=== PATIENT | male | born 1965 | race Two or more races ===

== ENCOUNTER 2017-11-25 20:16 | Inpatient (IN) | payer OTHER ==
--- NOTE | 2017-11-25 20:21 | PDOC ---
Rapid Medical Evaluation Time Seen by Provider: 11/25/17 20:19 Medical Evaluation: 11/25/17 20:19 I have performed a brief in-person evaluation of this patient. The patient presents with a chief complaint of: fever s/p I&D today Pertinent physical exam findings: Abscess present to midline upper back. I have ordered the following: nothing The patient will proceed to the ED for further evaluation. Discharge Disposition - Diagnosis Abscess - Referrals - Patient Instructions - Post Discharge Activity
[2017-11-25 20:24] VITALS: BMI 28.3
--- NOTE | 2017-11-25 21:01 | PDOC ---
History of Present Illness - General History Source: Patient, Old Records, Primary Care Provider Exam Limitations: No Limitations - History of Present Illness Initial Comments: 11/25/17 21:18 The patient is a 51 year old male, with no significant past medical history, who presents to the ED complaining of an an infected wound on his upper back and fever. His fever has been as high as 101 F at home and 103 F in the ED. He notes that he has had a lump on his upper back for the past 20 years but notes that over the past 5 days the area has become infected. He notes that he went to Dr. Fernandez office who attempted to drain the wound and then packed it before sending the patient to the ED. The patient reports that he is currently taking Codeine for his pain and Bactrim for his infection. He denies any other complaints. The patient denies chest pain, shortness of breath, headache or dizziness. Denieschills, nausea, vomiting, diarrhea and constipation. Denies dysuria, frequency, urgency and hematuria. Allergies: None Past surgical history: Hernia repair x 2 Social History: No alcohol, tobacco or drug use reported PMD: Dr. Gilmore <Gallo Payton - Last Filed: 11/26/17 01:00> <Yenny Branch - Last Filed: 11/26/17 01:12> - General Chief Complaint: SIRS, Suspected/Possible Stated Complaint: FEVER Time Seen by Provider: 11/25/17 20:19 Past History <Gallo Payton - Last Filed: 11/26/17 01:00> - Past Medical History COPD: No - Surgical History GI Surgery: Yes (hernia repair x 2) - Suicide/Smoking/Psychosocial Hx Smoking History: Former smoker Have you smoked in the past 12 months: No If you are a former smoker, when did you quit?: 2007 Information on smoking cessation initiated: No Hx Alcohol Use: No Drug/Substance Use Hx: No Substance Use Type: None <Yenny Branch - Last Filed: 11/26/17 01:12> - Past Medical History Allergies/Adverse Reactions: Allergies Allergy/AdvReac Type Severity Reaction Status Date / Time No Known Allergies Allergy Verified 11/25/17 21:44 Home Medications: Ambulatory Orders NK [No Known Home Medication] 11/25/17 Review of Systems - Review of Systems Able to Perform ROS?: Yes Comments:: 11/25/17 21:18 GENERAL/CONSTITUTIONAL: (+) Fever. No chills. No weakness. HEAD, EYES, EARS, NOSE AND THROAT: No change in vision. No ear pain or discharge. No sore throat. GASTROINTESTINAL: No nausea, vomiting, diarrhea or constipation. GENITOURINARY: No dysuria, frequency, or change in urination. CARDIOVASCULAR: No chest pain or shortness of breath. RESPIRATORY: No cough, wheezing, or hemoptysis. MUSCULOSKELETAL: No joint or muscle swelling or pain. No neck or back pain. SKIN: (+) Upper back lump with infection and drainage. Currently packed. NEUROLOGIC: No headache, vertigo, loss of consciousness, or change in strength/ sensation. ENDOCRINE: No increased thirst. No abnormal weight change. HEMATOLOGIC/LYMPHATIC: No anemia, easy bleeding, or history of blood clots. ALLERGIC/IMMUNOLOGIC: No hives or skin allergy. <Gallo Payton - Last Filed: 11/26/17 01:00> *Physical Exam - Vital Signs Last Vital Signs Temp Pulse Resp BP Pulse Ox 100.3 F H 108 H 20 127/93 100 11/25/17 20:18 11/25/17 20:18 11/25/17 20:18 11/25/17 20:18 11/25/17 20:18 - Physical Exam Comments: 11/25/17 21:19 Constitutional: Awake, alert, oriented. No acute distress. Head: Normocephalic. Atraumatic Eyes: PERRL. EOMI. Conjunctivae are not pale. ENT: Mucous membranes are moist and intact. Posterior pharynx without exudates or erythema. Uvula midline. Neck: Supple. Full ROM. No lymphadenopathy. Cardiovascular: Regular rate. Regular rhythm. S1, S2 regular. Distal pulses are 2+ and symmetric. Pulmonary/Chest: No evidence of respiratory distress. Clear to auscultation bilaterally No wheezing, rales or rhonchi. Abdominal: Soft and non-distended. There is no tenderness. No rebound, guarding or rigidity. No organomegaly. No palpable masses. Good bowel sounds. Back: No CVA tenderness. Musculoskeletal: No edema. No cyanosis. No clubbing. Full range of motion in all extremities. Nocalf tenderness. Radial/pedal pulses are intact and 2+ bilaterally Skin: (+) 9mm by 8mm wound on upper back with packing. Indurated with pockets of fluctulance. Neurological: Alert and oriented to person, place, and time. Cranial nerves II -XII are grossly intact. Normal speech. Strength is grossly symmetric. No sensory deficits. Psychiatric: Good eye contact. Normal interaction, affect and behavior. <Gallo Payton - Last Filed: 11/26/17 01:00> - Vital Signs Last Vital Signs Temp Pulse Resp BP Pulse Ox 100.3 F H 108 H 20 127/93 100 11/25/17 20:18 11/25/17 20:18 11/25/17 20:18 11/25/17 20:18 11/25/17 20:18 <Yenny Branch - Last Filed: 11/26/17 01:12> Heart Score/ECG Review - ECG Intrepretation Comment:: 11/25/17 22:00 sinus tach at 103, nl axis, nl interval, no acute st/t wave findings <Yenny Branch - Last Filed: 11/26/17 01:12> ED Treatment Course - LABORATORY CBC & Chemistry Diagram: 11/25/17 20:40 11/25/17 20:40 - ADDITIONAL ORDERS Additional order review: 11/25/17 20:40 RBC 5.10 MCV 82.8 MCHC 32.5 RDW 13.2 MPV 8.5 Neutrophils % 69.7 Lymphocytes % 22.8 Monocytes % 6.9 Eosinophils % 0.3 Basophils % 0.3 - RADIOLOGY Radiograph Interpretation: 11/26/17 01:00 CT scan of thoracic spine Reviewed by: Dr. Jason Moe Impression: Posterior cellulitis with probable 2.1 cm right midline subcutaneous abscess and possible small focus of hemorrhage without clear muscle involvement. <Gallo Payton - Last Filed: 11/26/17 01:00> - LABORATORY CBC & Chemistry Diagram: 11/25/17 20:40 11/25/17 20:40 <Yenny Branch - Last Filed: 11/26/17 01:12> Medical Decision Making - Medical Decision Making 11/25/17 21:24 a/p: 51yo male with intermittent fevers x 1 week with back abscess s/p I/D today with Dr. Gilmore -pt with fevers tonight of 101 at home -given iv abx in the office and bactrim - taken 1 time -pt with 9x8cm indurated, fluctuance, abscess with packing in place to back -surrounding erythema -R paraspinal abscess -will send labs, cultures, ct with contrast -will need iv abx 11/25/17 22:43 pt was started on bactrim ss and codeine for pain took 1 tab 11/26/17 00:58 pt with 2.1cm back abscess on ct with posterior cellulitis -iv abx ordered -will [employer] who covers dr. gilmore at night consult placed to Dr. Song for surgical eval in the AM 11/26/17 01:07 case discussed with Nayeli from [facility] who accepts pt to service <Yenny Branch - Last Filed: 11/26/17 01:12> *DC/Admit/Observation/Transfer - Attestations Scribe Attestion: 11/25/17 21:19 Documentation prepared by Gallo Payton, acting as biomedical engineering professor for Yenny Branch DO <Gallo Payton - Last Filed: 11/26/17 01:00> - Discharge Dispostion Decision to Admit order: Yes - Attestations Physician Attestion: 11/26/17 00:59 I, Dr. Yenny Branch DO, attest that this document has been prepared under my direction and personally reviewed by me in its entirety. I further attest, that it accurately reflects all work, treatment, procedures and medical decision -making performed by me. <Yenny Branch - Last Filed: 11/26/17 01:12> Diagnosis at time of Disposition: Abscess, Cellulitis of back - Discharge Dispostion Condition at time of disposition: Fair - Referrals Referrals: Samantha Gilmore MD [Primary Care Provider] - - Patient Instructions - Post Discharge Activity
[2017-11-25 21:15] LABS: BASO % 0.3 % (0-2.0); EOS % 0.3 % (0-4.5); HEMATOCRIT 42.2 % (35.4-49); HEMOGLOBIN 13.7 GM/dL (11.7-16.9); LYMPH % 22.8 % (8-40); MCH 26.9 pg (25.7-33.7); MCHC 32.5 g/dl (32.0-35.9); MEAN CELL VOLUME 82.8 fl (80-96); MEAN PLT VOLUME 8.5 fl (7.5-11.1); MONO % 6.9 % (3.8-10.2); NEUT % 69.7 % (42.8-82.8); PLATELET COUNT 205 K/MM3 (134-434); RDW 13.2 % (11.9-15.9); WHITE BLOOD COUNT 10.7 K/mm3 (4.0-10.0)
[2017-11-25] MEDS ORDERED: SODIUM CHLORIDE 0.9% 1000 ML INFUS.BAG IV ONE (22:00)
[2017-11-25] MEDS ORDERED: ACETAMINOPHEN 1000 MG/100 ML VIAL (NON FORMULARY) IVPB ONE (22:00)
[2017-11-25 23:08] LABS: INR 1.05 (0.82-1.09); PROTHROMBIN TIME (PATIENT) 11.9 SEC (9.7-13.0)
[2017-11-25 23:11] LABS: ACTIVATED PTT 36.1 SECONDS (25.2-36.5)
[2017-11-25 23:27] LABS: ALBUMIN 3.5 g/dl (3.4-5.0); ANION GAP 8 (8-16); BLOOD UREA NITROGEN 11 mg/dL (7-18); CALCIUM 8.4 mg/dL (8.5-10.1); CHLORIDE 100 mmol/L (98-107); CO2 27 mmol/L (21-32); CREATININE 0.6 mg/dL (0.7-1.3); GLUCOSE,RANDOM 102 mg/dL (74-106); POTASSIUM 4.1 mmol/L (3.5-5.1); SGOT/AST 20 U/L (15-37); SGPT/ALT 28 U/L (12-78); SODIUM 135 mmol/L (136-145)
[2017-11-25 23:30] LABS: ALK PHOS 49 U/L (45-117); BILIRUBIN,TOTAL 0.2 mg/dL (0.2-1.0); TOT PROT 7.4 g/dl (6.4-8.2)
[2017-11-26] MEDS ORDERED: VANCOMYCIN 1,000 MG in DEXTROSE 5%-WATER - 250 ML IVPB ONE (00:50)
[2017-11-26 01:12] LABS: URINE APPEARANCE CLEAR; URINE BILIRUBIN NEGATIVE (<2.0 mg/dL); URINE COLOR STRAW; URINE GLUCOSE (UA) NEGATIVE (NEGATIVE); URINE KETONE TRACE (NEGATIVE); URINE LEUK ESTERASE NEGATIVE (NEGATIVE); URINE NITRITE NEGATIVE (NEGATIVE); URINE PROTEIN NEGATIVE (NEGATIVE); URINE UROBILINOGEN NEGATIVE mg/dL (0.2-1.0)
[2017-11-26] MEDS ORDERED: VANCOMYCIN 1 GRAM (PRE-DOCKED) 1,000 MG/250 ML BAG IVPB ONE (01:28)
[2017-11-26] MEDS: morphine CARPU-JECT 4 MG/1 ML DISP.SYRIN IVPUSH PRN ×2 (02:15→08:34)
[2017-11-26] MEDS ORDERED: MORPHINE SULFATE 2 MG/ML VIAL ONE (02:15)
[2017-11-26] MEDS ORDERED: DEXTROSE 5%-0.45% SALINE 1,000 ML IV SCH (04:45)
[2017-11-26 07:42] LABS: ANION GAP 9 (8-16); BASO % 0.2 % (0-2.0); BLOOD UREA NITROGEN 8 mg/dL (7-18); CHLORIDE 101 mmol/L (98-107); CO2 28 mmol/L (21-32); CREATININE 0.5 mg/dL (0.7-1.3); EOS % 0.7 % (0-4.5); GLUCOSE,RANDOM 124 mg/dL (74-106); HEMATOCRIT 37.7 % (35.4-49); HEMOGLOBIN 12.6 GM/dL (11.7-16.9); LYMPH % 25.5 % (8-40); MCH 27.3 pg (25.7-33.7); MCHC 33.5 g/dl (32.0-35.9); MEAN CELL VOLUME 81.7 fl (80-96); MEAN PLT VOLUME 8.4 fl (7.5-11.1); MONO % 6.9 % (3.8-10.2); NEUT % 66.7 % (42.8-82.8); PLATELET COUNT 149 K/MM3 (134-434); POTASSIUM 3.8 mmol/L (3.5-5.1); RBC 4.61 M/mm3 (4.00-5.60); RDW 13.1 % (11.9-15.9); SODIUM 138 mmol/L (136-145); WHITE BLOOD COUNT 8.4 K/mm3 (4.0-10.0)
--- NOTE | 2017-11-26 08:01 | HP ---
Admitting History and Physical - Primary Care Physician PCP: Samantha Vidales - Admission Chief Complaint: Back Abscess History of Present Illness: 51 y/o man with no significant medical history. Who presents to the ED complaining of an an infected wound on his upper back and fever. His fever has been as high as 101 F at home and 103 F in the ED. He notes that he has had a lump on his upper back for the past 20 years but notes that over the past 5 days the area has become infected. He notes that he went to Dr. Fernandez office who attempted to drain the wound and then packed it before sending the patient to the ED. The patient reports that he is currently taking Codeine for his pain and Bactrim for his infection. He denies any other complaints. The patient denies chest pain, shortness of breath, headache or dizziness. Denieschills, nausea, vomiting, diarrhea and constipation. Denies dysuria, frequency, urgency and hematuria. History Source: Patient Limitations to Obtaining History: No Limitations - Past Medical History [employer] JUSTICE: No: Alzheimer's, CVA, Dementia, Migraine, Multiple Sclerosis, Peripheral Neuropathy, Parkinson's, Seizure, Syncope, TIA, Vertigo, Other Cardiovascular: No: AFIB, Aneurysm, Aortic Insufficiency, Aortic Stenosis, CAD, CHF, Deep Vein Thrombosis, HTN, Hyperlipdemia, [place], Mitral Insufficiency, Mitral Stenosis, Murmur, Pulmonary Hypertension, Other Pulmonary: No: Asthma, Bronchitis, Cancer, COPD, O2 Dependent, Pneumonia, Previously Intubated, Pulmonary Embolus, Pulmonary Fibrosis, Sleep Apnea, Other Gastrointestinal: Yes: Ascites, Cancer, Constipation, Crohn's Disease, Diverticulitis, Diverticulosis, Esophageal Varices, Gastritis, GERD, GI Bleed, Hemorrhoids, Hiatal Hernia, Inflamatory Bowel Disease, Irritable Bowel Disease, Pancreatitis, Peptic Ulcer Disease, Ulcerative Colitis, Other (Hernia) Hepatobiliary: No: Cirrhosis, Cholelithiasis, Cholecystitis, Choledocholithiasis , Hepatitis A, Hepatitis B, Hepatitis C, Other Renal/: No: Renal Failure, Renal Inusuff, BPH, Cancer, Hematuria, Hemodialysis , Neurogenic Bladder, Renal Calculi, UTI, Other Heme/Onc: No: Anemia, B12 Deficiency, Bleeding Disorder, Cancer, Current Chemotherapy, Current Radiation Therapy, Hemochromatosis, Hypercoaguable State, Myeloproliferative Synd, Sickle Cell Disease, Sickle Cell Trait, Thrombocytopenia, Other Infectious Disease: No: AIDS, C-Diff, Herpes Zoster, HIV, MRSA, STD's, Tuberculosis, VREF, Other Psych: No: Addictions, Anxiety, Bipolar, Depression, Panic, Psychosis, Schizophrenia, Other Musculoskeletal: No: Bursitis, Chronic low back pain, Hemiparesis, Hemiplegia, Osteoarthritis, Paraplegia, Other Rheumatology: No: Fibromyalgia, Gout, Lupus, Rheumatoid Arthritis, Sarcoidosis, Vasculitis, Other ENT: No: Allergic Rhinitis, Sinusitis, Other Endocrine: No: [place]'s Disease, [place]'s Disease, Diabetes Insipidus, Diabetes Mellitus, Hyperparathyroidism, Hyperthyroidism, Hypothyroidism, Osteopenia, SIADH, Other Dermatology: No: Basal Cell, Cellulitis, Eczema, Melanoma, Psoriasis, Squamous Cell, Other - Past Surgical History Past Surgical History: Yes: Hernia Repair - Smoking History Smoking history: Former smoker Have you smoked in the past 12 months: No If you are a former smoker, when did you quit?: 2007 - Alcohol/Substance Use Hx Alcohol Use: No History of Substance Use: reports: None - Social History Usual Living Arrangement: Yes: With Spouse ADL: Independent History of Recent Travel: No Home Medications - Allergies Allergies/Adverse Reactions: Allergies Allergy/AdvReac Type Severity Reaction Status Date / Time No Known Allergies Allergy Verified 11/25/17 21:44 - Home Medications Home Medications: Ambulatory Orders NK [No Known Home Medication] 11/25/17 Family Disease History - Family Disease History Family History: Denies Review of Systems - Review of Systems Constitutional: reports: Chills, Fever Eyes: reports: No Symptoms HENT: reports: No Symptoms Neck: reports: No Symptoms Cardiovascular: reports: No Symptoms Respiratory: reports: No Symptoms Gastrointestinal: reports: No Symptoms Genitourinary: reports: No Symptoms Breasts: reports: No Symptoms Reported Musculoskeletal: reports: Back Pain Integumentary: reports: Blister, Erythema, Lesions, Pruritis, Rash, Wound Neurological: reports: No Symptoms Endocrine: reports: No Symptoms Hematology/Lymphatic: reports: No Symptoms Psychiatric: reports: No Symptoms Physical Examination Vital Signs: Vital Signs Temperature 100.7 F H 11/26/17 06:00 Pulse Rate 99 H 11/26/17 06:00 Respiratory Rate 20 11/26/17 06:00 Blood Pressure 113/61 11/26/17 06:00 O2 Sat by Pulse Oximetry (%) 98 11/26/17 03:00 Constitutional: Yes: Well Nourished Eyes: Yes: WNL, Conjunctiva Clear, EOM Intact, PERRL HENT: Yes: WNL, Atraumatic, Normocephalic Neck: Yes: WNL, Supple, Trachea Midline Cardiovascular: Yes: WNL, Regular Rate and Rhythm, S1, S2 Respiratory: Yes: WNL, Regular, CTA Bilaterally Gastrointestinal: Yes: WNL, Normal Bowel Sounds, Soft ...Rectal Exam: Yes: WNL Renal/: Yes: WNL Breast(s): Yes: WNL Musculoskeletal: Yes: Back Pain Extremities: Yes: WNL Edema: No Peripheral Pulses WNL: Yes Integumentary: Yes: Erythema, Rash Wound/Incision: Yes: Draining, Reddened, Excoriated Neurological: Yes: WNL, Alert, Oriented ...Motor Strength: WNL Psychiatric: Yes: WNL, Alert, Oriented Labs: CBC, BMP 11/26/17 06:00 11/26/17 06:00 Problem List - Problems (1) Abscess Code(s): L02.91 - CUTANEOUS ABSCESS, UNSPECIFIED (2) Cellulitis of back Code(s): L03.312 - CELLULITIS OF BACK [ANY PART EXCEPT BUTTOCK] Assessment/Plan 51 y/o man with no significant medical history. Admitted for Cellulitis of Upper Back. Visit type - Emergency Visit Emergency Visit: Yes ED Registration Date: 11/26/17 Care time: The patient presented to the Emergency Department on the above date and was hospitalized for further evaluation of their emergent condition. - New Patient This patient is new to me today: Yes Date on this admission: 11/26/17 - Critical Care Critical Care patient: No Hospitalist Screening - Colonoscopy Questionnaire Colonoscopy Questionnaire: Colonoscopy Questionnaire - Patient: 50 - 75 years old and never had a screening colonoscopy: No History of colon or rectal polyps, or CA: No History of IBD, Crohn's disease or UC: No History of abdominal radiation therapy as a child: No - Relative: 1 with colon or rectal CA, or polyps at age 60 or younger: No Colon or rectal CA diagnosed at age 45 or younger: No Multiple relatives with colon or rectal CA: No - Outcome: Screening Result: Negative Screen
--- NOTE | 2017-11-26 08:20 | CONSULT ---
- Consultation REQUESTING PROVIDER: CONSULT REQUEST: We have been asked to surgically evaluate this patient for Surgery consult for back abscess PCP:Samantha Vidales HISTORY OF PRESENT ILLNESS: 51yo M presented to the ED with complaint of painful swelling on his back x 5 days with associated fevers and chills x 1 day. Pt was seen by his PCP Dr. Vidales who did a outpatient I&D and started him on Bactrim which he took for 1 day before developing fevers and being told to go to the ED for evaluation. Pt states that he has had a growth on his back for about 25 years, but never had any history of it being infected or needing drainage. Pt denies n/v. PMHx: Denies Home Medications Medication Instructions Recorded NK [No Known Home Medication] 11/25/17 Allergies Allergy/AdvReac Type Severity Reaction Status Date / Time No Known Allergies Allergy Verified 11/25/17 21:44 REVIEW OF SYSTEMS: CONSTITUTIONAL: Absent: diaphoresis, generalized weakness, malaise, loss of appetite, weight change CARDIOVASCULAR: Absent: chest pain, syncope, palpitations, irregular heart rate, lightheadedness , peripheral edema RESPIRATORY: Absent: cough, shortness of breath, dyspnea with exertion, wheezing, stridor, hemoptysis GASTROINTESTINAL: Absent: abdominal pain, abdominal distension, nausea, vomiting, diarrhea, constipation, melena, hematochezia GENITOURINARY: Absent: dysuria, frequency, urgency, hesitancy, hematuria, flank pain, genital pain MUSCULOSKELETAL: Absent: myalgia, arthralgia, joint swelling, back pain, neck pain SKIN: Absent: rash, itching, pallor PHYSICAL EXAM: GENERAL: Awake, alert, and fully oriented, in no acute distress. HEAD: Normal with no signs of trauma. EYES: PERRL, sclera anicteric, conjunctiva clear. NECK: Normal ROM, supple without lymphadenopathy, JVD, or masses. LUNGS: Clear to auscultation bilat anteriorly. No wheezes, and no crackles. No accessory muscle use. HEART: Regular rate and rhythm. No murmurs ABDOMEN: Soft, nontender, not distended, normoactive bowel sounds, no guarding, no rebound, no masses. No organomegaly. MUSCULOSKELETAL: Normal ROM at all joints. No bony deformities or tenderness. No CVA tenderness. NEUROLOGICAL: Normal speech, gait not observed. PSYCH: Cooperative. Good eye contact. Appropriate mood and affect. SKIN: Warm, dry, normal turgor, 7 x 8 cm erythetamous, tender, superficial mass with 2 cm incision and packing in place, purulent drainage noted, at Right thoracic area Vital Signs Temperature 100.7 F H 11/26/17 06:00 Pulse Rate 99 H 11/26/17 06:00 Respiratory Rate 20 11/26/17 06:00 Blood Pressure 113/61 11/26/17 06:00 O2 Sat by Pulse Oximetry (%) 98 11/26/17 03:00 Lab Results WBC 8.4 K/mm3 (4.0-10.0) 11/26/17 06:00 RBC 4.61 M/mm3 (4.00-5.60) 11/26/17 06:00 Hgb 12.6 GM/dL (11.7-16.9) 11/26/17 06:00 Hct 37.7 % (35.4-49) 11/26/17 06:00 MCV 81.7 fl (80-96) 11/26/17 06:00 MCHC 33.5 g/dl (32.0-35.9) 11/26/17 06:00 RDW 13.1 % (11.9-15.9) 11/26/17 06:00 Plt Count 149 K/MM3 (134-434) D 11/26/17 06:00 Sodium 138 mmol/L (136-145) 11/26/17 06:00 Potassium 3.8 mmol/L (3.5-5.1) 11/26/17 06:00 Chloride 101 mmol/L (98-107) 11/26/17 06:00 Carbon Dioxide 28 mmol/L (21-32) 11/26/17 06:00 Anion Gap 9 (8-16) 11/26/17 06:00 BUN 8 mg/dL (7-18) 11/26/17 06:00 Creatinine 0.5 mg/dL (0.7-1.3) L 11/26/17 06:00 Random Glucose 124 mg/dL (74-106) H D 11/26/17 06:00 Calcium 8.0 mg/dL (8.5-10.1) L 11/26/17 06:00 INR 1.05 (0.82-1.09) 11/25/17 22:30 Problem List - Problems (1) Abscess Assessment/Plan: Plan - Will take pt to OR for I&D of back abscess, keep NPO - Continue abx as recommended by medicine/ID - trend wbc Code(s): L02.91 - CUTANEOUS ABSCESS, UNSPECIFIED
[2017-11-26] MEDS ORDERED: morphine SULFATE 4 MG/ML VIAL ONE (08:24)
[2017-11-26] MEDS ORDERED: ACETAMINOPHEN 650 MG SUPP.RECT PR PRN (09:05)
[2017-11-26] MEDS ORDERED: HEPARIN NA (PORCINE) 5,000 UNITS/ML 1ML VIAL SQ SCH (10:00)
--- NOTE | 2017-11-26 11:45 | PN ---
Progress Note, Physician Chief Complaint: Upper back cellulitis History of Present Illness: NAD In bed self ambulatory seen by ID on IV abx - Current Medication List Current Medications: Active Medications Acetaminophen (Tylenol Suppository -) 650 mg DE Q6H PRN PRN Reason: FEVER OVER 101 Heparin Sodium (Porcine) (Heparin -) 5,000 unit SQ BID NORMAN Last Admin: 11/26/17 09:50 Dose: 5,000 unit Dextrose/Sodium Chloride (D5-1/2ns -) 1,000 mls @ 75 mls/hr IV ASDIR NORMAN Last Admin: 11/26/17 07:03 Dose: 75 mls/hr Vancomycin HCl (Vancomycin 1 Gm Premix -) 1 gm in 200 mls @ 133.333 mls/hr IVPB Q12H NORMAN Stop: 11/26/17 15:29 Vancomycin HCl (Vancomycin 1 Gm Premix -) 1 gm in 200 mls @ 133.333 mls/hr IVPB Q12H NORMAN Morphine Sulfate (Morphine Injection -) 2 mg IVPUSH Q4H PRN PRN Reason: PAIN LEVEL 6-10 Last Admin: 11/26/17 08:34 Dose: 2 mg - Objective Vital Signs: Vital Signs Temperature 100.7 F H 11/26/17 06:00 Pulse Rate 99 H 11/26/17 06:00 Respiratory Rate 20 11/26/17 06:00 Blood Pressure 113/61 11/26/17 06:00 O2 Sat by Pulse Oximetry (%) 98 11/26/17 03:00 Constitutional: Yes: Well Nourished, No Distress, Calm Cardiovascular: Yes: Regular Rate and Rhythm Respiratory: Yes: Regular Musculoskeletal: Yes: WNL Extremities: Yes: WNL Edema: No Peripheral Pulses WNL: Yes Wound/Incision: Yes: Draining Neurological: Yes: Alert, Oriented Psychiatric: Yes: Alert, Oriented Labs: CBC, BMP 11/26/17 06:00 11/26/17 06:00 INR, PTT INR 1.05 (0.82-1.09) 11/25/17 22:30 Problem List - Problems (1) Abscess Assessment/Plan: -Seen by ID -On IV abx -Going for I&D today -afebrile Code(s): L02.91 - CUTANEOUS ABSCESS, UNSPECIFIED
[2017-11-26] MEDS ORDERED: ONDANSETRON 4 MG/2 ML VIAL IVPUSH PRN ×2 (12:22→14:08)
[2017-11-26] MEDS ORDERED: LACTATED RINGERS SOLUTION 1,000 ML IV SCH (12:30)
[2017-11-26] MEDS ORDERED: MIDAZOLAM HCL 2 MG/2 ML SINGLE DOSE VIAL ONE ×2 (12:47)
[2017-11-26] MEDS ORDERED: LIDOCAINE HCL 1%, 10 MG/ML (20ML VIAL) NR ONE ×2 (13:02)
--- NOTE | 2017-11-26 13:08 | EKG ---
Test Reason : Blood Pressure : / mmHG Vent. Rate : 103 BPM Atrial Rate : 103 BPM P-R Int : 128 ms QRS Dur : 088 ms QT Int : 350 ms P-R-T Axes : 057 -26 009 degrees QTc Int : 458 ms SINUS TACHYCARDIA OTHERWISE NORMAL ECG NO PREVIOUS ECGS AVAILABLE Confirmed by ADALBERTO SALMERON MD ([id number]) on 11/26/2017 1:08:02 PM Referred By: Confirmed By:ADALBERTO SALMERON MD
--- NOTE | 2017-11-26 13:25 | OP ---
Operative Note - Note: Operative Date: 11/26/17 Pre-Operative Diagnosis: abscess of upper back Operation: incision/drainage abscess of upper back Findings: infected sebaceous cyst Post-Operative Diagnosis: Same as Pre-op Surgeon: Wayne Song Anesthesiologist/HYDRAULIC SPECIALIST: Katharina Oliveros MD Anesthesia: Local Estimated Blood Loss (mls): 10 Drains & Tubes with Location: wound packed open
[2017-11-26] MEDS ORDERED: VANCOMYCIN 1 GM PREMIX - 1 GM/200 ML BAG IVPB SCH (14:00)
[2017-11-26] MEDS ORDERED: morphine CARPU-JECT 4 MG/1 ML DISP.SYRIN IVPUSH PRN (14:08)
[2017-11-26] MEDS ORDERED: MORPHINE SULFATE 2 MG/ML VIAL IVPUSH PRN (14:29)
--- NOTE | 2017-11-26 15:09 | CON.ID ---
Consult Consult Specialty:: infectious diseases Referred by:: Reason for Consultation:: infected cyst/abscess of the back - History of Present Illness Chief Complaint: pain and swelling and cellulitis of the back History of Present Illness: 51yo M admitted with complaint of painful swelling on his back x 5 days with associated fevers and chills x 1 day. Patient had I and d done in his pcps office and then was started on bactrim patient subsequently developed fevers on bactrim and patient came to the ER According to the patient he has had this cyst for 25 yrs and did not give him any problem. no other complaints patient was seen by surgical team and patient was taken to the OR and underwnt I and ZD and excision of the cyst wound cx have been send currently the patient is stable - History Source History Provided By: Patient Limitations to Obtaining History: No Limitations - Alcohol/Substance Use Hx Alcohol Use: No - Smoking History Smoking history: Former smoker Have you smoked in the past 12 months: No If you are a former smoker, when did you quit?: 2007 Home Medications - Allergies Allergies/Adverse Reactions: Allergies Allergy/AdvReac Type Severity Reaction Status Date / Time No Known Allergies Allergy Verified 11/25/17 21:44 - Home Medications Home Medications: Ambulatory Orders NK [No Known Home Medication] 11/25/17 Review of Systems - Review of Systems Constitutional: reports: Chills, Fever Eyes: reports: No Symptoms HENT: reports: No Symptoms Neck: reports: No Symptoms Cardiovascular: reports: No Symptoms Respiratory: reports: No Symptoms Gastrointestinal: reports: No Symptoms Genitourinary: reports: No Symptoms Musculoskeletal: reports: No Symptoms Integumentary: reports: Change in Color, Erythema, Lump Neurological: reports: No Symptoms Endocrine: reports: No Symptoms Hematology/Lymphatic: reports: No Symptoms Psychiatric: reports: No Symptoms Physical Exam Vital Signs: Vital Signs Temperature 99.5 F 11/26/17 13:18 Pulse Rate 82 11/26/17 14:00 Respiratory Rate 18 11/26/17 14:00 Blood Pressure 99/62 11/26/17 14:00 O2 Sat by Pulse Oximetry (%) 95 11/26/17 14:00 Constitutional: Yes: Well Nourished, No Distress, Calm Eyes: Yes: Conjunctiva Clear HENT: Yes: Atraumatic, Normocephalic Neck: Yes: Supple, Trachea Midline Cardiovascular: Yes: Regular Rate and Rhythm Respiratory: Yes: Regular, CTA Bilaterally Gastrointestinal: Yes: Normal Bowel Sounds, Soft Musculoskeletal: Yes: WNL Extremities: Yes: WNL Integumentary: Yes: Erythema (on the back) Wound/Incision: Yes: Dressing Dry and Intact, Other (post op) Neurological: Yes: Alert, Oriented Psychiatric: Yes: Alert, Oriented Labs: CBC, BMP 11/26/17 06:00 11/26/17 06:00 Imaging - Results Chest X-ray: Report Reviewed, Image Reviewed Cat Scan: Report Reviewed, Image Reviewed Assessment/Plan Problem List - Problems (1) Abscess Code(s): L02.91 - CUTANEOUS ABSCESS, UNSPECIFIED plan will start patient on zosyn await for cx report depending on report we will make final plan wound care and as per surgery
--- NOTE | 2017-11-26 16:08 | OP ---
DATE OF OPERATION: 11/26/2017 PREOPERATIVE DIAGNOSIS: Infected sebaceous cyst of the upper back. POSTOPERATIVE DIAGNOSIS: Infected sebaceous cyst of the upper back. PROCEDURE: Incision and drainage of infected sebaceous cyst of the upper back. SURGEON: Wayne Song M.D. ANESTHESIA: Local with IV sedation. OPERATIVE FINDINGS: There was extensive infected sebaceous cyst of the soft tissue of the upper back. The rest of the findings were unremarkable. PROCEDURE: The patient was placed on the operating table in the left lateral decubitus position. The area over the abscess was prepped with Betadine and draped in sterile fashion. A timeout was taken, and the incision made with the scalpel and taken down through skin and subcutaneous tissue until the abscess cavity was entered. Purulent drainage was sent for culture and sensitivity, and all loculations were broken up using blunt dissection. Copious irrigation with the solution of 50% saline and 50% peroxide was carried out. Further irrigation with normal saline was done, and hemostasis secured with electrocautery. The wound was packed with 1 inch iodoform gauze, dry sterile dressings were placed, and the procedure terminated at this point, and the patient transferred to the postanesthesia care unit in stable condition awake and alert. Estimated blood loss 10 mL. Replacements crystalloid. Drains 1 inch packing. Specimen, culture and sensitivity to microbiology and purulent drainage. I, Wayne Song, was physically present in the operating room from the time the patient was placed on the operating room table until he was transferred to the post-anesthesia care unit in my accompaniment. MD NILDA Kaplan/[id number] [facility]
[2017-11-26] MEDS: DEXTROSE 5%-0.45% SALINE 1,000 ML IV SCH ×2 (17:02→21:09)
[2017-11-26] MEDS ORDERED: DEXTROSE 5%-WATER - 50 ML IVPB ONE (18:02)
[2017-11-26] MEDS ORDERED: PIPERACILLIN/TAZOBACTAM 3.375 GM VIAL IVPB ONE (18:02)
[2017-11-26] MEDS: PIPERACILLIN/TAZOB 3.375 GM 3.375 GM in DEXTROSE 5%-WATER - 50 ML IVPB SCH (18:05)
[2017-11-26] MEDS: HEPARIN NA (PORCINE) 5,000 UNITS/ML 1ML VIAL SQ SCH (21:07)
[2017-11-27] MEDS ORDERED: VANCOMYCIN 1 GM PREMIX - 1 GM/200 ML BAG IVPB SCH (02:00)
[2017-11-27] MEDS ORDERED: DEXTROSE 5%-WATER - 50 ML IVPB ONE ×4 (02:17→23:13)
[2017-11-27] MEDS ORDERED: PIPERACILLIN/TAZOBACTAM 3.375 GM VIAL IVPB ONE ×4 (02:17→23:12)
[2017-11-27] MEDS: PIPERACILLIN/TAZOB 3.375 GM 3.375 GM in DEXTROSE 5%-WATER - 50 ML IVPB SCH ×3 (02:49→17:58)
--- NOTE | 2017-11-27 09:10 | PN ---
Progress Note (short form) - Note Progress Note: Post op day#1.S/p I&D Of back abscess under MAC uneventful.Patient stable.No any anesthesia related problem.Patient Dc from the anesthesia care.
[2017-11-27] MEDS: HEPARIN NA (PORCINE) 5,000 UNITS/ML 1ML VIAL SQ SCH ×2 (10:00→21:18)
--- NOTE | 2017-11-27 10:58 | PN ---
Progress Note, Physician Chief Complaint: Upper back cellulitis History of Present Illness: NAD In bed self ambulatory Had I&D yesterday by surgery seen by Laurie C&S wound on IV abx - Current Medication List Current Medications: Active Medications Heparin Sodium (Porcine) (Heparin -) 5,000 unit SQ BID NORMAN Last Admin: 11/27/17 10:00 Dose: 5,000 unit Dextrose/Sodium Chloride (D5-1/2ns -) 1,000 mls @ 75 mls/hr IV ASDIR NORMAN Last Admin: 11/26/17 21:09 Dose: 75 mls/hr Lactated Ringer's (Lactated Ringers Solution) 1,000 mls @ 125 mls/hr IV ASDIR NORMAN Vancomycin HCl (Vancomycin 1 Gm Premix -) 1 gm in 200 mls @ 133.333 mls/hr IVPB Q12H NORMAN Piperacillin Sod/Tazobactam (Sod 3.375 gm/ Dextrose) 50 mls @ 100 mls/hr IVPB Q8H-IV NORMAN; Protocol Last Admin: 11/27/17 10:00 Dose: 100 mls/hr Morphine Sulfate (Morphine Sulfate) 2 mg IVPUSH Q4H PRN PRN Reason: PAIN LEVEL 6-10 Ondansetron HCl (Zofran Injection) 4 mg IVPUSH Q6H PRN PRN Reason: NAUSEA AND/OR VOMITING Last Admin: 11/26/17 18:04 Dose: 4 mg - Objective Vital Signs: Vital Signs Temperature 99.9 F H 11/27/17 07:08 Pulse Rate 84 11/27/17 07:08 Respiratory Rate 18 11/27/17 07:08 Blood Pressure 111/66 11/27/17 07:08 O2 Sat by Pulse Oximetry (%) 100 11/26/17 21:00 Constitutional: Yes: Well Nourished, No Distress, Calm Cardiovascular: Yes: Regular Rate and Rhythm Respiratory: Yes: Regular Gastrointestinal: Yes: Normal Bowel Sounds, Soft Musculoskeletal: Yes: WNL Extremities: Yes: WNL Edema: No Peripheral Pulses WNL: Yes Wound/Incision: Yes: Dressing Dry and Intact Neurological: Yes: Alert, Oriented Psychiatric: Yes: Alert, Oriented Labs: CBC, BMP 11/26/17 06:00 11/26/17 06:00 INR, PTT INR 1.05 (0.82-1.09) 11/25/17 22:30 Problem List - Problems (1) Abscess Assessment/Plan: -Had I&D yesterday -Seen by ID -On IV abx -awaiting C&S -afebrile -labs unremarkable Code(s): L02.91 - CUTANEOUS ABSCESS, UNSPECIFIED Assessment/Plan see problem list
[2017-11-27] MEDS: LACTATED RINGERS SOLUTION 1,000 ML IV SCH ×2 (11:01→17:59)
--- NOTE | 2017-11-27 12:59 | PN ---
Progress Note (short form) - Note Progress Note: Attending Surgeon POD #! No c/o; wants to go home; doesn't want his wound packed VSS AF; T nax 99.9 wound open and indurated w/cellulitic changes; no purulent drainage; o/w negative cultures pending INP: doing well post op PLAN: May shower and cover wound w/DSD; no packing needed and rest of plan per primary team. Wayne Song MD FACS
--- NOTE | 2017-11-27 13:22 | PN ---
Progress Note, Physician History of Present Illness: stable does not want anything more to be done says he is going to go home also did not allow the wound to be packed - Current Medication List Current Medications: Active Medications Heparin Sodium (Porcine) (Heparin -) 5,000 unit SQ BID NORMAN Last Admin: 11/27/17 10:00 Dose: 5,000 unit Dextrose/Sodium Chloride (D5-1/2ns -) 1,000 mls @ 75 mls/hr IV ASDIR NORMAN Last Admin: 11/26/17 21:09 Dose: 75 mls/hr Lactated Ringer's (Lactated Ringers Solution) 1,000 mls @ 125 mls/hr IV ASDIR NORMAN Last Admin: 11/27/17 11:01 Dose: Not Given Vancomycin HCl (Vancomycin 1 Gm Premix -) 1 gm in 200 mls @ 133.333 mls/hr IVPB Q12H NORMAN Piperacillin Sod/Tazobactam (Sod 3.375 gm/ Dextrose) 50 mls @ 100 mls/hr IVPB Q8H-IV NORMAN; Protocol Last Admin: 11/27/17 10:00 Dose: 100 mls/hr Morphine Sulfate (Morphine Sulfate) 2 mg IVPUSH Q4H PRN PRN Reason: PAIN LEVEL 6-10 Last Admin: 11/27/17 11:01 Dose: 2 mg Ondansetron HCl (Zofran Injection) 4 mg IVPUSH Q6H PRN PRN Reason: NAUSEA AND/OR VOMITING Last Admin: 11/26/17 18:04 Dose: 4 mg - Objective Vital Signs: Vital Signs Temperature 98.5 F 11/27/17 10:00 Pulse Rate 82 11/27/17 10:00 Respiratory Rate 16 11/27/17 10:00 Blood Pressure 120/80 11/27/17 10:00 O2 Sat by Pulse Oximetry (%) 100 11/27/17 09:00 Constitutional: Yes: No Distress, Calm Cardiovascular: Yes: Regular Rate and Rhythm Respiratory: Yes: Regular, CTA Bilaterally Gastrointestinal: Yes: Normal Bowel Sounds, Soft Musculoskeletal: Yes: WNL Extremities: Yes: WNL Wound/Incision: Yes: Draining, Other Neurological: Yes: Alert, Oriented Psychiatric: Yes: Alert, Oriented Labs: CBC, BMP 11/26/17 06:00 11/26/17 06:00 INR, PTT INR 1.05 (0.82-1.09) 11/25/17 22:30 Assessment/Plan Problem List - Problems (1) Abscess Code(s): L02.91 - CUTANEOUS ABSCESS, UNSPECIFIED plan i would continue zosyn till we get cx results patient is refusing to stay if he does not stay then switch him to oral augmentin for 7 days spoke to the surgeon it seems he has a bad skin on the back so probably will take long time in healing after 7 days reevaluate and then further decision can be made also his cx needs to be followed patient mentions that his primary doctor can take care of it
[2017-11-27] MEDS: DEXTROSE 5%-0.45% SALINE 1,000 ML IV SCH (17:59)
[2017-11-28] MEDS: PIPERACILLIN/TAZOB 3.375 GM 3.375 GM in DEXTROSE 5%-WATER - 50 ML IVPB SCH ×2 (01:26→09:44)
--- NOTE | 2017-11-28 09:06 | PN ---
Progress Note, Physician History of Present Illness: patient stable no complaints - Current Medication List Current Medications: Active Medications Heparin Sodium (Porcine) (Heparin -) 5,000 unit SQ BID NORMAN Last Admin: 11/27/17 21:18 Dose: Not Given Vancomycin HCl (Vancomycin 1 Gm Premix -) 1 gm in 200 mls @ 133.333 mls/hr IVPB Q12H NORMAN Piperacillin Sod/Tazobactam (Sod 3.375 gm/ Dextrose) 50 mls @ 100 mls/hr IVPB Q8H-IV NORMAN; Protocol Last Admin: 11/28/17 01:26 Dose: 100 mls/hr Morphine Sulfate (Morphine Sulfate) 2 mg IVPUSH Q4H PRN PRN Reason: PAIN LEVEL 6-10 Last Admin: 11/27/17 11:01 Dose: 2 mg Ondansetron HCl (Zofran Injection) 4 mg IVPUSH Q6H PRN PRN Reason: NAUSEA AND/OR VOMITING Last Admin: 11/26/17 18:04 Dose: 4 mg - Objective Vital Signs: Vital Signs Temperature 99.1 F 11/28/17 06:22 Pulse Rate 83 11/28/17 06:22 Respiratory Rate 20 11/28/17 06:22 Blood Pressure 120/76 11/28/17 06:22 O2 Sat by Pulse Oximetry (%) 100 11/27/17 21:00 Constitutional: Yes: No Distress, Calm Cardiovascular: Yes: Regular Rate and Rhythm Respiratory: Yes: Regular, CTA Bilaterally Gastrointestinal: Yes: Normal Bowel Sounds, Soft Musculoskeletal: Yes: WNL Extremities: Yes: WNL Wound/Incision: Yes: Other (dressing wet) Neurological: Yes: Alert, Oriented Psychiatric: Yes: Alert, Oriented Labs: CBC, BMP 11/26/17 06:00 11/26/17 06:00 INR, PTT INR 1.05 (0.82-1.09) 11/25/17 22:30 Assessment/Plan Problem List - Problems (1) Abscess Code(s): L02.91 - CUTANEOUS ABSCESS, UNSPECIFIED plan continue abx dressing change wound care awaiting culture and sensitivity report
[2017-11-28] MEDS ORDERED: PIPERACILLIN/TAZOBACTAM 3.375 GM VIAL IVPB ONE (09:19)
[2017-11-28] MEDS ORDERED: DEXTROSE 5%-WATER - 50 ML IVPB ONE (09:20)
--- NOTE | 2017-11-28 09:20 | DS ---
Physical Examination Vital Signs: Vital Signs Temperature 99.1 F 11/28/17 06:22 Pulse Rate 83 11/28/17 06:22 Respiratory Rate 20 11/28/17 06:22 Blood Pressure 120/76 11/28/17 06:22 O2 Sat by Pulse Oximetry (%) 100 11/27/17 21:00 Cardiovascular: Yes: Regular Rate and Rhythm Respiratory: Yes: Regular, CTA Bilaterally Gastrointestinal: Yes: Normal Bowel Sounds, Soft Wound/Incision: Yes: Dressing Removed, Other (open). No: Draining Labs: CBC, BMP 11/26/17 06:00 11/26/17 06:00 Discharge Summary Reason For Visit: CELLULITIS OF BACK EXCEPT BUTTOCK/ ABSCESS Current Active Problems Abscess (Acute) Cellulitis of back (Acute) Hospital Course: 51 y/o man with no significant medical history. Who presents to the ED complaining of an an infected wound on his upper back and fever. His fever has been as high as 101 F at home and 103 F in the ED. He notes that he has had a lump on his upper back for the past 20 years but notes that over the past 5 days the area has become infected. He notes that he went to Dr. Fernandez office who attempted to drain the wound and then packed it before sending the patient to the ED. The patient reports that he is currently taking Codeine for his pain and Bactrim for his infection. He denies any other complaints. - Problems (1) Abscess Assessment/Plan: -Had I&D -Seen by ID--d/w dr severino--po augmentin -awaiting C&S-follow as oupatient -afebrile -labs noted Code(s): L02.91 - CUTANEOUS ABSCESS, UNSPECIFIED (2) DM -diet and monitor as outpatient Condition: Improved - Instructions Diet, Activity, Other Instructions: Follow up with Flash Garrett on thursday Follow wound dressing changes as instructed by surgeon Diabetic diet follow up with Dr Vidales regarding cultures May take shower Clean the wound with Normal saline or soap and water, dress with dry sterile dressing daily and as needed Referrals: Samantha Vidales MD [Primary Care Provider] - 11/30/17 Disposition: HOME - Home Medications Comprehensive Discharge Medication List: Ambulatory Orders Amoxicillin/Potassium Clav [Augmentin 875-125 Tablet] 1 each PO BID #14 tablet 11/28/17
--- NOTE | 2017-11-28 09:30 | PN ---
Progress Note (short form) - Note Progress Note: Attending Surgeon POD#2 No c/o VSS AF wound open and healing; less cellulitis o/w negative IMP: doing well PLAN: Instructed on wound care and outpatient f/u. Wayne Song MD FACS
[2017-11-28] MEDS: HEPARIN NA (PORCINE) 5,000 UNITS/ML 1ML VIAL SQ SCH (09:44)
[2017-11-28 11:16] VITALS: BP 118/74; PULSE 81; TEMP 98.5
[2017-11-28] MEDS: VANCOMYCIN 1 GM PREMIX - 1 GM/200 ML BAG IVPB SCH ×2 (12:05→12:06)
== END 2017-11-28 11:52 | disposition home or self-care (01) | DRG 383 ==
LOC: JER 20:16 → JERBED 11-26 01:12 → J8W 11-26 03:30
PROVIDERS: ADMIT Internal Medicine; ATTEND Family Medicine
PROC: 0J970ZX Drainage of Back Subcutaneous Tissue and Fascia, Open Approach, Diagnostic (ICD-10-PCS; principal; 2017-11-26 18:00)
DX: L03.221 Cellulitis of neck (principal); L72.3 Sebaceous cyst; E11.9 Type 2 diabetes mellitus without complications; Z87.891 Personal history of nicotine dependence
CPT/HCPCS: 36415; 71045-TC-FY; 72129-TC; 80048; 80053; 81003; 81015; 83036; 83605; 85025; 85610; 85730; 87040; 87070; 87076; 87205; 93005; 93010; 94760; 99284-25; J0131; J1644; J7030

== ENCOUNTER 2021-05-12 15:33 | Emergency (ER) | payer OTHER ==
[2021-05-12 16:12] VITALS: BMI 26.6
[2021-05-12] MEDS ORDERED: CASIRIVIMAB/IMDEVIMAB 10 ML in SODIUM CHLORIDE 100 ML IVPB ONE (16:17)
[2021-05-12 18:56] VITALS: BP 128/78; PULSE 97
[2021-05-12 18:57] VITALS: TEMP 98.7
== END 2021-05-12 19:06 | disposition home or self-care (01) ==
LOC: JER 15:33
DX: U07.1 COVID-19 (principal)
CPT/HCPCS: 96374; 99284-25; Q0240